=== PATIENT | male | born 2000 | race Caucasian/White ===

== ENCOUNTER 2019-12-05 10:46 | Emergency (ER) | payer MEDICAID, OTHER ==
[~2019-12-05] VITALS: Ht 177.8 cm; Wt 97.5 kg
[2019-12-05] MEDS ORDERED: ACETAMINOPHEN 325 MG TAB PO ONE (11:00)
[2019-12-05 11:01] VITALS: BP 153/95
[2019-12-05] MEDS ORDERED: hydrOXYchloroQUINE SULFATE 200 MG TAB PO ONE (11:45)
== END 2019-12-05 13:30 | disposition home or self-care (01) ==
LOC: ER 10:46
DX: R50.9 Fever, unspecified (principal); J02.9 Acute pharyngitis, unspecified; R51 Headache; F17.210 Nicotine dependence, cigarettes, uncomplicated; Z20.828 Contact with and (suspected) exposure to other viral communicable diseases
CPT/HCPCS: 71045